=== PATIENT | male | born 2005 | race Caucasian/White ===

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

== ENCOUNTER 2024-05-16 13:56 | Emergency (ER) | payer OTHER | END 2024-05-16 14:15 | disposition left against medical advice (07) | LOC: ERS 13:56 | DX: Z53.21 Procedure and treatment not carried out due to patient leaving prior to being seen by health care provider (principal) ==

== ENCOUNTER 2024-07-25 17:59 | Emergency (ER) | payer OTHER | END 2024-07-25 18:44 | disposition home or self-care (01) | LOC: ERS 17:59 | DX: R19.7 Diarrhea, unspecified (principal); Z55.6 Problems related to health literacy; Z87.891 Personal history of nicotine dependence; Z79.899 Other long term (current) drug therapy | CPT/HCPCS: 99283 ==